=== PATIENT | female | born 1960 | race Caucasian/White ===

== ENCOUNTER 2016-11-09 22:37 | Emergency (ER) | payer OTHER ==
[~2016-11-09] VITALS: Ht 165.1 cm; Wt 72.1 kg
[~2016-11-09 22:37] MED LIST: ATOR40TA16 PO; CIPR-9 PO; EMPA1TAB11 PO; FLUO20CA4 PO; LEVO50TA4 PO; LIOT5TAB3 PO; LISI2.5T3 PO; MONT10TA4 PO
[2016-11-09 22:42] VITALS: BP 124/86; PULSE 82; RESP 18; TEMP 97.6; O2SAT 96
[2016-11-09] MEDS ORDERED: VITA100021 SL (23:03)
--- NOTE | 2016-11-09 23:10 | PD ---
HPI Chief Complaint: Injury Time Seen by Provider: 23:05 Travel History International Travel<30 days: No Contact w/Intl Traveler<30days: No Traveled to known affect area: No History of Present Illness HPI 55-year-old female presents to the emergency department by private transportation for evaluation of injury to the left hand thumb and wrist that occurred around 5 PM when she threw a dog toy with her left hand. Patient states she is right-handed. Patient states when she threw the toy which was a small bone she felt or heard a pop sensation and then shortly thereafter started noticing discomfort in the thumb thenar eminence wrist area with some mild swelling. Patient does not take any blood thinning agents. Patient does take lisinopril for hypertension. Patient rates pain 8/10 in intensity. Patient applied ice but did not take any medication such as ibuprofen or acetaminophen. Patient notes that attempted use of the hand causes increased discomfort applying ice remaining still provided some relief. No prior left hand or wrist injury. PFSH Past Medical History Narrative Medical Hypertension, hypothyroidism, diabetes; appendectomy hysterectomy; no tobacco use; nursing notes reviewed Hx Anticoagulant Therapy: No Cardiovascular Problems: Yes (htn on meds) Diabetes: Yes (type 2) Diminished Hearing: No Genitourinary: Yes (STATES HX OF PERFORATED BLADDER) Immunizations Current: Yes Past Surgical History Appendectomy: Yes Section: Yes Hysterectomy: Yes Social History Alcohol Use: No Tobacco Use: No (QUIT) Substance Use: No Allergies-Medications (Allergen,Severity, Reaction): Coded Allergies: Penicillin (Verified Allergy, Intermediate, HIVES, 11/09/16) Reported Meds & Prescriptions Reported Meds & Active Scripts Active Reported Vitamin B-12 (Cyanocobalamin) 1,000 Mcg Subl 1,000 Mcg SL DAILY Lisinopril 2.5 Mg Tab 2.5 Mg PO DAILY Synjardy (Empagliflozin-Metformin) 5-500 Mg Tab 1 Tab PO BIDPC Levothyroxine (Levothyroxine Sodium) 50 Mcg Tab 50 Mcg PO DAILY Montelukast (Montelukast Sodium) 10 Mg Tab 10 Mg PO HS Atorvastatin (Atorvastatin Calcium) 40 Mg Tab 40 Mg PO HS Fluoxetine (Fluoxetine HCl) 20 Mg Cap 20 Mg PO DAILY Liothyronine (Liothyronine Sodium) 5 Mcg Tab 5 Mcg PO DAILY Review of Systems Except as stated in HPI: all other systems reviewed are Neg Physical Exam Narrative GENERAL: Well-developed well-nourished female in no acute distress no respiratory distress SKIN: Warm and dry. MUSCULOSKELETAL: No cyanosis, or edema. Left hand attention left thumb and thenar eminence mild bruising no significant edema patient has intact thumb apposition flexion extension of each digit is intact patient is able to abduct and adduct flex and extend and rotate thumb. Capillary refill is brisk and less than 2 seconds per digit sensation is intact. Radial ulnar pulses are 2+ to palpation no wrist deformity or edema. Data Data Last Documented VS Vital Signs Date Time Temp Pulse Resp B/P Pulse Ox O2 Delivery O2 Flow Rate FiO2 11/09/16 22:42 97.6 82 18 124/86 96 Orders Hand, Complete ([id number]) (11/09/16 ) Ice/Cold Pack (11/09/16 23:05) [facility] Medical Decision Making Medical Screen Exam Complete: Yes Emergency Medical Condition: Yes Medical Record Reviewed: Yes Interpretation(s) Last Impressions Hand X-Ray 11/09/16 0000 Signed Impressions: Service Date/Time: Wednesday, November 09, 2016 23:25 - CONCLUSION: No acute fracture. Tristan Stephens MD Differential Diagnosis Sprain strain fracture neurovascular tendon injury Narrative Course Ice pack applied imaging study ordered Patient informed imaging study reveals no acute bony abnormality no fracture no subluxation no dislocation; Guevara wrap applied; patient administered weight-based ibuprofen. Diagnosis Primary Impression: Sprain of hand, thumb, left Qualified Code: S63.642A - Sprain of metacarpophalangeal (MCP) joint of left thumb, initial encounter Referrals: Hand Surgeon as needed Primary Care Physician call for appointment Patient Instructions: General Instructions Additional Instructions: wear guevara wrap as needed for comfort (do NOT sleep with guevara wrap in place) May continue to use ice intermittently for next 12-24 hours Follow-up with your primary care provider call in a.m. to schedule follow-up appointment and schedule with hand surgeon as needed Use ibuprofen/Advil/Motrin per package directions as tolerated for pain associated with inflammation Return to the emergency for for any concerns Med/Other Pt SpecificInfo: No Change to Meds Disposition: 01 DISCHARGE HOME Condition: Stable Ro Hernández MD Nov 09, 2016 23:10
--- NOTE | 2016-11-09 23:38 | RADHPO ---
EXAM DATE/TIME: 11/09/2016 23:25 [facility] COMPARISON: No previous studies available for comparison. INDICATIONS : Left hand pain from unknown injury. MEDICAL HISTORY : None. SURGICAL HISTORY : None. ENCOUNTER: Initial ACUITY: 1 day PAIN SCORE: 8/10 LOCATION: Left distal hand FINDINGS: Three view examination of the left hand demonstrates no soft tissue swelling, dislocation, or fractur e. The carpal bones appear intact. Scattered mild degenerative changes. Bony mineralization is nor mal. CONCLUSION: No acute fracture. Tristan Stephens MD on November 09, 2016 at 23:35 Board Certified Radiologist. This report was verified electronically.
[2016-11-10] MEDS ORDERED: IBUPROFEN 600 MG TAB PO ONE
[2016-11-10 00:08] VITALS: BP 130/80
== END 2016-11-10 00:12 | disposition home or self-care (01) ==
LOC: PHED 22:37
DX: S63.642A Sprain of metacarpophalangeal joint of left thumb, initial encounter (principal); E11.9 Type 2 diabetes mellitus without complications; E03.9 Hypothyroidism, unspecified; I10 Essential (primary) hypertension; Z87.891 Personal history of nicotine dependence; X58.XXXA Exposure to other specified factors, initial encounter; Y93.K9 Activity, other involving animal care; Y92.9 Unspecified place or not applicable; Y99.8 Other external cause status
CPT/HCPCS: 73130; 99283

== ENCOUNTER 2018-01-12 12:41 | Emergency (ER) | payer OTHER ==
[~2018-01-12] VITALS: Ht 167.6 cm; Wt 76.0 kg
[~2018-01-12 12:41] MED LIST changes: -CIPR-9 PO; +VITA100021 SL
[2018-01-12 13:10] VITALS: BP 155/97; PULSE 82; RESP 18; TEMP 98.2; O2SAT 96
[2018-01-12] MEDS ORDERED: EMPA1TAB3 PO (13:48)
[2018-01-12 14:15] VITALS: BP 142/88; PULSE 75; RESP 18; O2SAT 97
[2018-01-12 14:37] LABS: AUTOMATED NEUTROPHIL # 6.1 TH/MM3 (1.8-7.7); BASOPHIL % 0.4 % (0.0-2.0); EOSINOPHIL # 0.1 TH/MM3 (0-0.4); EOSINOPHIL % 0.7 % (0.0-4.0); HEMATOCRIT 40.4 % (35.0-46.0); HEMOGLOBIN 13.8 GM/DL (11.6-15.3); LYMPH % 31.4 % (9.0-44.0); MEAN CELL VOLUME 82.3 FL (80.0-100.0); MEAN CORPUSCULAR HEMOGLOBIN 28.1 PG (27.0-34.0); MEAN CORPUSCULAR HGB CONC 34.1 % (32.0-36.0); MEAN PLATELET VOLUME 8.4 FL (7.0-11.0); MONO % 5.1 % (0.0-8.0); MONOCYTE # 0.5 TH/MM3 (0-0.9); NEUT % 62.4 % (16.0-70.0); PLATELET COUNT 361 TH/MM3 (150-450); RED BLOOD COUNT 4.91 MIL/MM3 (4.00-5.30); RED CELL DISTRIBUTION WIDTH 12.7 % (11.6-17.2); WHITE BLOOD COUNT 9.7 TH/MM3 (4.0-11.0)
[2018-01-12 14:44] LABS: CHLORIDE 108 MEQ/L (98-107); SODIUM (NA) 140 MEQ/L (136-145)
[2018-01-12 14:47] LABS: CALCIUM 8.5 MG/DL (8.5-10.1)
[2018-01-12 14:48] LABS: BICARBONATE 26.4 MEQ/L (21.0-32.0); BLOOD UREA NITROGEN 13 MG/DL (7-18); GLUCOSE,RANDOM 131 MG/DL (74-106)
[2018-01-12 14:51] LABS: CREATININE 0.79 MG/DL (0.50-1.00); GLOMERULAR FILTRATION RATE 75 ML/MIN (>89)
[2018-01-12 14:55] LABS: TROPONIN I LESS THAN 0.02 NG/ML (0.02-0.05)
[2018-01-12 14:57] VITALS: BP 138/85; PULSE 77; RESP 16; O2SAT 98
--- NOTE | 2018-01-12 15:04 | RADRPT ---
EXAM DATE: 01/12/2018 2:51 PM EDT AGE/SEX: 57 years / Female INDICATIONS: Headache and chest pain on and off for a few weeks. CLINICAL DATA: This is the patient's initial encounter. Patient reports that signs and symptoms have been present for 1 day and indicates a pain score of 2/10. MEDICAL/SURGICAL HISTORY: Hypertension. Diabetes. Hysterectomy. Appendectomy. secti on. COMPARISON: No prior [facility] exams available for comparison. FINDINGS: PA and lateral views of the chest demonstrate the lungs to be symmetrically aerated without evidence of mass, infiltrate or effusion. The cardiomediastinal contours are unremarkable. Osseous structures are intact. CONCLUSION: 1. No acute cardiopulmonary disease. Electronically signed by: Mark Walsh MD 01/12/2018 3:02 PM EDT
--- NOTE | 2018-01-12 15:56 | RADRPT ---
EXAM DATE: 01/12/2018 3:39 PM EDT AGE/SEX: 57 years / Female INDICATIONS: Patient states that she feels lightheaded and "foggy". CLINICAL DATA: This is the patient's initial encounter. Patient reports that signs and symptoms have been present for 3 days and indicates a pain score of 5/10. MEDICAL/SURGICAL HISTORY: Hypertension. Diabetes. Appendectomy. Hysterectomy. section. RADIATION DOSE: 56.41 CTDI (mGy) COMPARISON: No prior [facility] exams available for comparison. TECHNIQUE: CT of the head without contrast. Using automated exposure control and adjustment of the mA and/or kV according to patient size, radiation dose was kept as low as reasonably achievable to ob tain optimal diagnostic quality images. FINDINGS: Cerebrum: The ventricles are normal. No midline shift, mass lesion, hemorrhage or acute infarction. No extraaxial fluid collections are seen. Posterior Fossa: The cerebellum and brainstem demonstrate no acute abnormality. The 4th ventricle is midline. The cerebellopontine angle is within normal limits. Extracranial: The visualized sinuses are clear. Skull: The calvaria is intact. No skull fracture. CONCLUSION: No acute intracranial abnormality is identified. Electronically signed by: Med Perez MD 01/12/2018 3:55 PM EDT
--- NOTE | 2018-01-12 16:43 | PD ---
HPI Chief Complaint: Pain: Acute or Chronic Time Seen by Provider: 14:21 Travel History International Travel<30 days: No Contact w/Intl Traveler<30days: No Traveled to known affect area: No History of Present Illness HPI This 57-year-old female is complaining of headache. She says she been having headache for the last 3 days. Fairly constant throbbing headache. Also been having intermittent chest pain for some time. Some sharp pain lasts less than a minute. Is not clearly related to exertion. She does say she is under a lot of stress. She has had some spasm on the right side of her neck. She does say that she is under a lot of stress. She cares for several elderly patients PFSH Past Medical History Hx Anticoagulant Therapy: No Cardiovascular Problems: Yes (htn on meds) Diabetes: Yes Patient Takes Glucophage: No Diminished Hearing: No Genitourinary: Yes (STATES HX OF PERFORATED BLADDER) Hypertension: Yes Immunizations Current: Yes Influenza Vaccination: No ?: Not Past Surgical History Appendectomy: Yes Section: Yes Hysterectomy: Yes Social History Alcohol Use: No Tobacco Use: No (QUIT) Substance Use: No Allergies-Medications (Allergen,Severity, Reaction): Coded Allergies: penicillin G (Unverified Allergy, Intermediate, HIVES, 01/12/18) Reported Meds & Prescriptions Reported Meds & Active Scripts Active Reported Jardiance (Empagliflozin) 25 Mg Tab 25 Mg PO DAILY Vitamin B-12 (Cyanocobalamin) 1,000 Mcg Subl 1,000 Mcg SL DAILY Lisinopril 2.5 Mg Tab 2.5 Mg PO DAILY Synjardy (Empagliflozin-Metformin) 5-500 Mg Tab 1 Tab PO BIDPC Levothyroxine (Levothyroxine Sodium) 50 Mcg Tab 50 Mcg PO DAILY Montelukast (Montelukast Sodium) 10 Mg Tab 10 Mg PO HS Atorvastatin (Atorvastatin Calcium) 40 Mg Tab 40 Mg PO HS Fluoxetine (Fluoxetine HCl) 20 Mg Cap 20 Mg PO DAILY Liothyronine (Liothyronine Sodium) 5 Mcg Tab 5 Mcg PO DAILY Review of Systems General / Constitutional: No: Fever, Chills Eyes: No: Diploplia, Blurred Vision HENT: Positive: Headaches, No: Lightheadedness Cardiovascular: Positive: Chest Pain or Discomfort, No: Palpitations, Irregular Rhythm Respiratory: No: Cough, Shortness of Breath Gastrointestinal: No: Nausea, Vomiting Genitourinary: No: Urgency Musculoskeletal: No: Myalgias, Arthralgias Skin: No Rash Neurologic: No: Weakness Hematologic/Lymphatic: No: Easy Bruising Physical Exam Narrative GENERAL: Well-developed female SKIN: Focused skin assessment warm/dry. HEAD: Atraumatic. Normocephalic. EYES: Pupils equal and round. No scleral icterus. No injection or drainage. ENT: No nasal bleeding or discharge. Mucous membranes pink and moist. Right side muscles are tense NECK: Trachea midline. No JVD. CARDIOVASCULAR: Regular rate and rhythm. No murmur appreciated. RESPIRATORY: No accessory muscle use. Clear to auscultation. Breath sounds equal bilaterally. GASTROINTESTINAL: Abdomen soft, non-tender, nondistended. Hepatic and splenic margins not palpable. MUSCULOSKELETAL: No obvious deformities. No clubbing. No cyanosis. No edema. NEUROLOGICAL: Awake and alert. No obvious cranial nerve deficits. Motor grossly within normal limits. Normal speech. PSYCHIATRIC: Appropriate mood and affect; insight and judgment normal. Data Data Last Documented VS Vital Signs Date Time Temp Pulse Resp B/P (MAP) Pulse Ox O2 Delivery O2 Flow Rate FiO2 01/12/18 16:45 81 16 140/89 (106) 100 Room Air 01/12/18 13:10 98.2 Orders Orders Electrocardiogram (01/12/18 14:07) Complete Blood Count With Diff (01/12/18 14:07) Basic Metabolic Panel (Bmp) (01/12/18 14:07) Ckmb (Isoenzyme) Profile (01/12/18 14:07) Troponin I (01/12/18 14:07) Iv Access Insert/Monitor (01/12/18 14:07) Ecg Monitoring (01/12/18 14:07) Oxygen Administration (01/12/18 14:07) Oximetry (01/12/18 14:07) Chest, Pa & Lat (01/12/18 14:07) Ct Brain W/O Iv Contrast(Rout) (01/12/18 14:54) Acetamin-Hydrocod 325-5 Mg ([place] 5-325 (01/12/18 17:00) Labs Laboratory Tests Test 01/12/18 14:20 White Blood Count 9.7 TH/MM3 Red Blood Count 4.91 MIL/MM3 Hemoglobin 13.8 GM/DL Hematocrit 40.4 % Mean Corpuscular Volume 82.3 FL Mean Corpuscular Hemoglobin 28.1 PG Mean Corpuscular Hemoglobin Concent 34.1 % Red Cell Distribution Width 12.7 % Platelet Count 361 TH/MM3 Mean Platelet Volume 8.4 FL Neutrophils (%) (Auto) 62.4 % Lymphocytes (%) (Auto) 31.4 % Monocytes (%) (Auto) 5.1 % Eosinophils (%) (Auto) 0.7 % Basophils (%) (Auto) 0.4 % Neutrophils # (Auto) 6.1 TH/MM3 Lymphocytes # (Auto) 3.0 TH/MM3 Monocytes # (Auto) 0.5 TH/MM3 Eosinophils # (Auto) 0.1 TH/MM3 Basophils # (Auto) 0.0 TH/MM3 CBC Comment DIFF FINAL Differential Comment Blood Urea Nitrogen 13 MG/DL Creatinine 0.79 MG/DL Random Glucose 131 MG/DL Calcium Level 8.5 MG/DL Sodium Level 140 MEQ/L Potassium Level 4.3 MEQ/L Chloride Level 108 MEQ/L Carbon Dioxide Level 26.4 MEQ/L Anion Gap 6 MEQ/L Estimat Glomerular Filtration Rate 75 ML/MIN Total Creatine Kinase 72 U/L Troponin I LESS THAN 0.02 NG/ML MDM Medical Decision Making Medical Screen Exam Complete: Yes Emergency Medical Condition: Yes Medical Record Reviewed: Yes Differential Diagnosis Differential includes migraine headache, muscle contraction headache, atypical chest pain Narrative Course CT is negative. I believe the symptoms are most compatible with a muscle contraction headache. I will prescribe some Flexeril Diagnosis Primary Impression: Muscle contraction headache Scripts Cyclobenzaprine (Flexeril) 10 Mg Tab 10 MG PO TID for Muscle Spasm, #20 TAB 0 Refills Prov: Camilo Dutta MD 01/12/18 Disposition: 01 DISCHARGE HOME Condition: Stable Camilo Dutta MD January 12, 2018 16:43
[2018-01-12 16:45] VITALS: BP 140/89; PULSE 81; RESP 16; O2SAT 100
[2018-01-12] MEDS ORDERED: CYCL10TA PO ×2 (16:52→17:07)
[2018-01-12] MEDS ORDERED: ACETAMINOPHEN/HYDROcodone 325 MG/5 MG TAB PO ONE (17:00)
--- NOTE | 2018-01-13 14:18 | EKG ---
Date Performed: 01/12/2018 Time Performed: 14:18:04 PTAGE: 57 years EKG: Sinus rhythm BORDERLINE LEFT AXIS DEVIATION BORDERLINE ECG PREVIOUS TRACING : 06/20/2016 14.14 DOCTOR: Ti Cantor Interpretating Date/Time 01/13/2018 14:18:14
== END 2018-01-12 17:22 | disposition home or self-care (01) ==
LOC: PHED 12:41 → PHEFT 17:22
DX: R51 Headache (principal); R07.9 Chest pain, unspecified; I10 Essential (primary) hypertension; E11.9 Type 2 diabetes mellitus without complications; Z79.899 Other long term (current) drug therapy; Z88.0 Allergy status to penicillin
CPT/HCPCS: 70450; 71046; 80048; 82550; 84484; 85025; 93005; 99285